=== PATIENT | male | born 2000 | race Two or more races ===

== ENCOUNTER 2018-01-16 01:39 | Emergency (ER) | payer SELFPAY ==
[~2018-01-16] VITALS: Ht 170.2 cm; Wt 63.3 kg
[2018-01-16 04:47] VITALS: BP 143/79
== END 2018-01-16 07:20 | disposition left against medical advice (07) ==
LOC: ER 01:39
DX: F17.200 Nicotine dependence, unspecified, uncomplicated (principal); Z53.21 Procedure and treatment not carried out due to patient leaving prior to being seen by health care provider